=== PATIENT | male | born 1995 | race Caucasian/White ===

== ENCOUNTER → 2018-05-20 | Outpatient (REF) | payer OTHER ==
[2018-05-20 18:06] LABS: AMORPHOUS SEDIMENT MODERATE (NEGATIVE); APPEARANCE, URINE TURBID (CLEAR); BACTERIA, URINE AUTO NEGATIVE (NEGATIVE); BILIRUBIN, URINE AUTO NEGATIVE (NEGATIVE); BLOOD, URINE BLOOD NEGATIVE (NEGATIVE); COLOR, URINE YELLOW (YELLOW); GLUCOSE, URINE (UA) AUTO NEGATIVE (NEGATIVE); KETONE, URINE AUTO NEGATIVE (NEGATIVE); LEUKOCYTE ESTERASE, URINE AUTO NEGATIVE (NEGATIVE); NITRITE, URINE AUTO NEGATIVE (NEGATIVE); PROTEIN, URINE AUTO NEGATIVE (NEGATIVE); RBC, URINE AUTO 0 /HPF (0-3); SPECIFIC GRAVITY URINE AUTO 1.027 (1.002-1.035); SQUAMOUS EPITHELIAL CELL UR AU 0 /HPF (0-6); WBC, URINE AUTO 0 /HPF (0-3)
[2018-05-20 20:23] LABS: CHLAMYDIA DNA AMPLIFICATION NEGATIVE (NEGATIVE); GC DNA AMPLIFICATION NEGATIVE (NEGATIVE)
== END ==
LOC: M SMT 17:00
DX: N50.812 Left testicular pain (principal)

== ENCOUNTER → 2018-05-28 | Outpatient (REF) | payer OTHER ==
[2018-05-28 13:01] LABS: SEMEN APPEARANCE OPAQUE (OPAQUE); SEMEN VISCOSITY LIQUID (LIQUID); SPERM ABNORMAL FORMS WBC'S NOTED; WBC CONCENTRATION <=1 M/ml (<=1 M/ml)
[2018-05-28 13:02] LABS: % NORMAL FORMS 8 % (>=4); IMMOTILITY 50 %; NON PROGRESSIVE MOTILITY (c) 14 %; PROGRESSIVE MOTILITY (a) 36 % (>=32); SPERM CONCENTRATION 32.9 M/ml (>=15.0); SPERM# 263.5 M/Ejac (>=39); TOTAL FUNCTIONAL 17.8 M/Ejac.; TOTAL MOTILITY 50 % (>=40); TOTAL PROGRESSIVE SPERM 94.6 M/Ejac.
== END ==
LOC: M SMT 12:27
DX: I86.1 Scrotal varices (principal)

== ENCOUNTER 2018-07-20 08:00 | Day surgery (SDC) | payer OTHER ==
[2018-07-20] MEDS ORDERED: LR 1,000 ML IV ×2 (08:15→13:30)
[2018-07-20] MEDS ORDERED: LIDOCAINE 2% INJ 100 MG/5 ML SDV (FOR ANES.) As Ordered (11:23)
[2018-07-20] MEDS ORDERED: ROCURONIUM BROMIDE 50 MG/5 ML VIAL As Ordered (11:23)
[2018-07-20] MEDS ORDERED: PROPOFOL 200 MG/20 ML VIAL As Ordered (11:23)
[2018-07-20] MEDS ORDERED: ONDANSETRON 4MG/2ML VIAL (J2405) As Ordered ×2 (11:23→13:11)
[2018-07-20] MEDS ORDERED: MIDAZOLAM INJ 2 MG/2 ML VIAL (J2250) As Ordered (11:23)
[2018-07-20] MEDS ORDERED: dexameTHASONE 4 MG/ML 1ML VIAL (J1100) As Ordered (11:23)
[2018-07-20] MEDS ORDERED: fentaNYL 250 MCG/5 ML INJECTION (J3010) As Ordered (11:23)
[2018-07-20] MEDS ORDERED: SUGAMMADEX SODIUM 500 MG/5 ML VIAL (BRIDION) As Ordered (11:25)
[2018-07-20] MEDS: LIDOCAINE 1% SDV INJ 30 ML VIAL As Ordered (12:33)
[2018-07-20] MEDS: BUPIVACAINE HCL 0.25% 30 ML VIAL As Ordered (12:33)
[2018-07-20] MEDS: PERCOCET 5MG/325MG TAB PO (13:05)
[2018-07-20] MEDS ORDERED: PERCOCET 5MG/325MG TAB As Ordered (13:05)
[2018-07-20] MEDS ORDERED: fentaNYL 100 MCG/2 ML INJECTION (J3010) IV (13:30)
[2018-07-20] MEDS ORDERED: ONDANSETRON 4MG/2ML VIAL (J2405) IV (13:30)
[2018-07-20] MEDS ORDERED: PERCOCET 5MG/325MG TAB PO ×2 (13:30)
== END 2018-07-20 14:30 | disposition home or self-care (01) ==
LOC: M SDC 08:00
DX: I86.1 Scrotal varices (principal)
CPT/HCPCS: 55550